=== PATIENT | female | born 1995 | race Caucasian/White ===

== ENCOUNTER 2024-06-25 23:37 | Emergency (ER) | payer OTHER ==
[~2024-06-25] VITALS: Ht 162.6 cm; Wt 86.8 kg
[~2024-06-25 23:37] MED LIST: IBU800 M1 PO; ROXICODONE 55 MG/TAB PO; TYLENOL 500MG500 MG PO
[2024-06-25 23:52] VITALS: TEMP 98.2
[2024-06-26 00:23] LABS: COLLECTION METHOD CLEAN CATCH
[2024-06-26 00:32] LABS: BASO % 0.4 % (0.0-2.0); EOS # 0.2 K/mm3 (0.0-0.7); EOS % 2.9 % (0.0-4.0); GRAN # 3.8 K/mm3 (1.4-6.5); GRAN % 54.5 % (42.2-75.2); HEMATOCRIT 41.1 % (37.0-47.0); HEMOGLOBIN 13.6 g/dl (12.5-16.0); LYMPH # 2.4 K/mm3 (1.2-3.4); LYMPH % 34.7 % (20.0-51.0); MEAN CELL VOLUME 91 fl (80.0-100.0); MEAN CORPUSCULAR HEMOGLOBIN 30 pg (27-31); MEAN CORPUSCULAR HGB CONC 33 g/dl (33.0-37.0); MEAN PLATELET VOLUME 11.5 fl (7.4-10.4); MONO # 0.5 K/mm3 (0.1-0.6); MONO % 7.2 % (1.7-9.3); PLATELET COUNT 193 K/mm3 (130-400); RED BLOOD COUNT 4.54 M/mm3 (4.10-5.30); REDCELL DISTRIBUTION WIDTH-CV 12.3 % (11.5-14.5)
[2024-06-26 00:37] LABS: ALBUMIN 3.7 g/dL (3.5-5.0); BILIRUBIN,TOTAL 0.4 mg/dL (0.2-1.2); CALCIUM 9.2 mg/dL (8.4-10.2); CREATININE, serum 0.66 mg/dL (0.57-1.11); POTASSIUM 3.8 mEq/L (3.5-4.5); TOTAL PROTEIN 6.9 g/dl (6.2-8.1)
[2024-06-26 00:39] LABS: URINE APPEARANCE CLEAR (CLEAR/HAZY); URINE BLOOD NEGATIVE (NEGATIVE); URINE COLOR YELLOW (YELLOW); URINE GLUCOSE NEGATIVE (NEGATIVE); URINE KETONE NEGATIVE (NEGATIVE); URINE NITRATE NEGATIVE (NEGATIVE); URINE PROTEIN(semi-quant) NEGATIVE (NEGATIVE); URINE UROBILINOGEN 0.2 E.U/dL (0.2-1.0)
[2024-06-26] MEDS ORDERED: Iohexol 300 - 100 ML VIAL IV ONE (00:57)
[2024-06-26] MEDS ORDERED: NS 100 ML IV ONE (00:58)
[2024-06-26 01:53] VITALS: BP 142/70; PULSE 68
== END 2024-06-26 01:54 | disposition home or self-care (01) ==
LOC: COL.ER 23:37
PROVIDERS: Emergency Medicine
DX: K80.20 Calculus of gallbladder without cholecystitis without obstruction (principal)
CPT/HCPCS: Q9967

== ENCOUNTER 2024-07-29 06:54 | Day surgery (SDC) | payer OTHER ==
[~2024-07-29] VITALS: Ht 162.6 cm; Wt 82.3 kg
[~2024-07-29 06:54] MED LIST changes: +LR 1,000 ML IV SCH; +Meclizine 25 MG TAB PO SCH
[2024-07-29] MEDS ORDERED: PRENATAL PO (07:26)
[2024-07-29] MEDS ORDERED: Rocuronium 50 MG/5 ML Multi-Dose VIAL ONE (07:29)
[2024-07-29] MEDS ORDERED: fentaNYL 50 MCG/ML 5 ML VIAL ONE (07:29)
[2024-07-29] MEDS ORDERED: NS 10 ML IV ONE (07:31)
[2024-07-29] MEDS ORDERED: dexAMETHasone 10 MG/ML VIAL ONE (07:31)
[2024-07-29] MEDS ORDERED: Glycopyrrolate 0.2 MG/ML 1 ML VIAL ONE (07:31)
[2024-07-29] MEDS ORDERED: Lidocaine PF 2% (20 MG/ML) 5 ML VIAL ONE (07:31)
[2024-07-29] MEDS ORDERED: Ondansetron 4 MG/2 ML VIAL ONE (07:31)
[2024-07-29] MEDS ORDERED: Ketorolac 30 MG/ML VIAL ONE (07:31)
[2024-07-29] MEDS ORDERED: DHA PO (07:50)
[2024-07-29 08:13] LABS: BASO % 0.4 % (0.0-2.0); EOS # 0.1 K/mm3 (0.0-0.7); EOS % 1.8 % (0.0-4.0); GRAN % 64.1 % (42.2-75.2); HEMATOCRIT 42.9 % (37.0-47.0); HEMOGLOBIN 14.6 g/dl (12.5-16.0); LYMPH # 2.1 K/mm3 (1.2-3.4); LYMPH % 26.7 % (20.0-51.0); MEAN CELL VOLUME 89 fl (80.0-100.0); MEAN CORPUSCULAR HEMOGLOBIN 30 pg (27-31); MEAN CORPUSCULAR HGB CONC 34 g/dl (33.0-37.0); MONO # 0.5 K/mm3 (0.1-0.6); MONO % 6.7 % (1.7-9.3); PLATELET COUNT 194 K/mm3 (130-400); RED BLOOD COUNT 4.85 M/mm3 (4.10-5.30); REDCELL DISTRIBUTION WIDTH-CV 12.8 % (11.5-14.5)
[2024-07-29] MEDS ORDERED: Indocyanine Green 12.5 MG in Water For Injection,Sterile 2.5 ML IV ONE (08:15)
[2024-07-29 08:25] VITALS: BP 127/84; PULSE 86; TEMP 98.1
[2024-07-29] MEDS ORDERED: ceFAZolin 2 G in Water For Injection,Sterile 20 ML IV SCH (08:30)
[2024-07-29 08:48] LABS: BILIRUBIN,TOTAL 0.5 mg/dL (0.2-1.2); CALCIUM 9.5 mg/dL (8.4-10.2); CREATININE, serum 0.69 mg/dL (0.57-1.11); POTASSIUM 3.9 mEq/L (3.5-4.5); TOTAL PROTEIN 7.7 g/dl (6.2-8.1)
[2024-07-29] MEDS ORDERED: MOTRIN 600600 MG/TAB PO (09:47)
[2024-07-29] MEDS ORDERED: Topical Skin Adhesive 1 EACH (1 ML) TOP ONE (10:06)
[2024-07-29] MEDS ORDERED: HYDROmorphone 1 MG/1 ML SYRINGE [PACU/SDC ONLY] IV PRN (10:30)
[2024-07-29] MEDS ORDERED: Ondansetron 4 MG/2 ML VIAL IV PRN ×2 (10:30→11:30)
[2024-07-29] MEDS ORDERED: hydrALAZINE 20 MG/ML 1 ML VIAL IV PRN (10:30)
[2024-07-29] MEDS ORDERED: fentaNYL 50 MCG/ML 1 ML SYRINGE/VIAL [PACU/SDC ONLY] IV PRN (10:30)
[2024-07-29] MEDS ORDERED: droPERidol 2.5 MG/ML 2 ML VIAL IV PRN (10:30)
[2024-07-29] MEDS ORDERED: Morphine 4 MG/ML VIAL IV PRN (11:30)
[2024-07-29] MEDS ORDERED: oxyCODONE/Acetaminophen 5-325 MG TAB PO PRN (11:30)
[2024-07-29] MEDS ORDERED: Ibuprofen 600 MG TAB PO PRN (11:30)
[2024-07-29 11:50] VITALS: BP 108/69; PULSE 71; TEMP 97.1
[2024-07-29 12:00] VITALS: BP 117/63; PULSE 62
[2024-07-29 12:15] VITALS: BP 115/69; PULSE 67
--- NOTE | 2024-07-29 13:34 | NUR ---
1150- PT BACK TO BAY 7 FROM PACU VIA CART. MONITOR ON AND ALARMS SET. PT ALERT AND ORIENTED. REPORT RECIEVED FROM GR[facility]GOR[facility] JEFFERY. VSS. AT BEDSIDE. CALL LIGHT WITHIN REACH. PT REQUESTING FOOD AND DRINK. NO OTHER NEEDS AT THIS TIME. 1200- PT TAKING FOOD AND DRINK WELL WITH NO COMPLICATIONS AT THIS TIME. 1230- DISCHARGE PAPERWORK GIVEN TO PT WITH AT BEDSIDE. ALL QUESTIONS ANSWERED. 1245- PT TRANSFERRED OUT OF THE HOSPITAL VIA WHEELCHAIR TO OWN PRIVATE VEHICLE DRIVEN BY .
== END 2024-07-29 12:45 | disposition home or self-care (01) ==
LOC: SDCO 06:54
PROVIDERS: Surgery
DX: K80.10 Calculus of gallbladder with chronic cholecystitis without obstruction (principal)
CPT/HCPCS: J0690; J1100; J1885; J2405; J2704; J3010; J7120

== ENCOUNTER 2024-08-21 17:12 | Emergency (ER) | payer OTHER ==
[~2024-08-21] VITALS: Ht 162.6 cm; Wt 79.5 kg
[~2024-08-21 17:12] MED LIST changes: +DHA PO; -LR 1,000 ML IV SCH; +MOTRIN 600600 MG/TAB PO; -Meclizine 25 MG TAB PO SCH; +PRENATAL PO
[2024-08-21 17:20] VITALS: TEMP 98.2
[2024-08-21 21:26] LABS: BASO # 0.1 K/mm3 (0.0-0.2); BASO % 0.6 % (0.0-2.0); EOS # 0.1 K/mm3 (0.0-0.7); EOS % 1.2 % (0.0-4.0); GRAN # 5.5 K/mm3 (1.4-6.5); GRAN % 66.5 % (42.2-75.2); HEMATOCRIT 44.8 % (37.0-47.0); HEMOGLOBIN 15.1 g/dl (12.5-16.0); LYMPH # 2.1 K/mm3 (1.2-3.4); LYMPH % 25.7 % (20.0-51.0); MEAN CELL VOLUME 91 fl (80.0-100.0); MEAN CORPUSCULAR HEMOGLOBIN 31 pg (27-31); MEAN CORPUSCULAR HGB CONC 34 g/dl (33.0-37.0); MEAN PLATELET VOLUME 11.8 fl (7.4-10.4); MONO # 0.5 K/mm3 (0.1-0.6); MONO % 5.6 % (1.7-9.3); PLATELET COUNT 252 K/mm3 (130-400); RED BLOOD COUNT 4.92 M/mm3 (4.10-5.30); REDCELL DISTRIBUTION WIDTH-CV 13.1 % (11.5-14.5)
[2024-08-21 21:28] LABS: ERYTHROCYTE SEDIMENTATION RATE 8 mm/hr (0-20)
[2024-08-21] MEDS ORDERED: NS 1,000 ML IV ONE (21:30)
[2024-08-21 21:42] LABS: ALBUMIN 4.5 g/dL (3.5-5.0); BILIRUBIN,TOTAL 0.5 mg/dL (0.2-1.2); C-REACTIVE PROTEIN 0.2 mg/dL (0.00-0.50); CREATININE, serum 0.66 mg/dL (0.57-1.11); POTASSIUM 3.9 mEq/L (3.5-4.5); TOTAL PROTEIN 8.6 g/dl (6.2-8.1)
[2024-08-21] MEDS ORDERED: predniSONE 10 MG TAB PO ONE (23:30)
[2024-08-21] MEDS ORDERED: PREDNISONE50 MG PO (23:33)
[2024-08-21 23:46] VITALS: BP 122/86; PULSE 78
== END 2024-08-21 23:46 | disposition home or self-care (01) ==
LOC: COL.ER 17:12
PROVIDERS: Emergency Medicine
DX: R20.0 Anesthesia of skin (principal)
CPT/HCPCS: J7030; J7512